=== PATIENT | female | born 1990 | race African-American/Black ===

== ENCOUNTER 2017-09-14 22:04 | Emergency (ER) | payer SELFPAY ==
[~2017-09-14] VITALS: Ht 162.6 cm; Wt 55.0 kg
[2017-09-14 22:13] VITALS: BP 122/55; PULSE 88; RESP 16; TEMP 99.6; O2SAT 100
== END 2017-09-14 23:33 | disposition left against medical advice (07) ==
LOC: NED 22:04
DX: Z53.21 Procedure and treatment not carried out due to patient leaving prior to being seen by health care provider (principal)
CPT/HCPCS: 99281

== ENCOUNTER 2017-09-23 22:44 | Emergency (ER) | payer SELFPAY ==
[~2017-09-23] VITALS: Ht 162.6 cm; Wt 50.4 kg
[2017-09-23 22:54] VITALS: BP 115/61; PULSE 94; RESP 16; TEMP 98.1; O2SAT 99
[2017-09-23] MEDS ORDERED: PREN1MIS10 (22:58)
--- NOTE | 2017-09-24 00:23 | PD ---
HPI Chief Complaint: Abdominal Pain Time Seen by Provider: 00:19 Travel History International Travel<30 days: No Contact w/Intl Traveler<30days: No Traveled to known affect area: No History of Present Illness HPI 27-year-old female presents to the emergency department complaining of intermittent right sided lower abdominal pain since last evening. Patient states she is approximately 6 weeks . Last menstrual period was . Patient is 3 para 0 AB 2. Patient does not have an CAR[employer]KER is scheduled for first appointment 10/02/17. Patient does not know her blood type. Patient denies any fever chills vomiting diarrhea dysuria frequency urgency hematuria vaginal discharge or vaginal bleeding. Patient rates discomfort at this time minor last night it was 7/10 intensity. Patient is taking no medications including no vitamins. PFSH Past Medical History Narrative Medical Ab2 LMP 08/19/17; no tobacco use no alcohol use no substance; nursing notes reviewed Medical History: Denies Significant Hx ?: LMP: 08/19/17 Past Surgical History Surgical History: No Previous Surgery Social History Alcohol Use: No Tobacco Use: No Substance Use: No Allergies-Medications (Allergen,Severity, Reaction): Coded Allergies: No Known Allergies (Unverified , 09/23/17) Reported Meds & Prescriptions Reported Meds & Active Scripts Active Reported One A Day Womens 28-0.8 & 223 mg ( Vit W/ Ferrous Fumara) 28- 800-223 Mis Review of Systems Except as stated in HPI: all other systems reviewed are Neg Physical Exam Narrative GENERAL: Well-developed well-nourished female no acute distress no respiratory distress SKIN: Warm and dry. HEAD: Normocephalic. EYES: No scleral icterus. No injection or drainage. NECK: Supple, trachea midline. No JVD or lymphadenopathy. CARDIOVASCULAR: Regular rate and rhythm without murmurs, gallops, or rubs. RESPIRATORY: Breath sounds equal bilaterally. No accessory muscle use. GASTROINTESTINAL: Abdomen soft, non-tender, nondistended. Pelvic exam: Normal external exam no redness induration or lesion; speculum exam scant white mucus no clots no blood no tissue cervical loss is closed; bimanual exam no adnexal mass or tenderness no cervical motion tenderness no uterine enlargement. MUSCULOSKELETAL: No cyanosis, or edema. BACK: Nontender without obvious deformity. No CVA tenderness. Data Data Last Documented VS Vital Signs Date Time Temp Pulse Resp B/P (MAP) Pulse Ox O2 Delivery O2 Flow Rate FiO2 09/23/17 22:54 98.1 94 16 115/61 (79) 99 Orders Orders Beta Hcg (Quant/Titer) (09/24/17 00:19) Complete Blood Count With Diff (09/24/17 00:19) Comprehensive Metabolic Panel (09/24/17 00:19) Complete Rh (09/24/17 00:19) Urinalysis - C+S If Indicated (09/24/17 00:19) Ed Urine Pregnancytest Poc (09/24/17 00:19) Us Pelvis (Ques Pr/Ect)W Trans (09/24/17 ) Rhogam Only (09/24/17 02:53) Labs Laboratory Tests Test 09/24/17 00:30 White Blood Count 9.9 TH/MM3 Red Blood Count 4.45 MIL/MM3 Hemoglobin 13.1 GM/DL Hematocrit 38.4 % Mean Corpuscular Volume 86.4 FL Mean Corpuscular Hemoglobin 29.5 PG Mean Corpuscular Hemoglobin Concent 34.2 % Red Cell Distribution Width 13.0 % Platelet Count 286 TH/MM3 Mean Platelet Volume 9.4 FL Neutrophils (%) (Auto) 52.4 % Lymphocytes (%) (Auto) 35.3 % Monocytes (%) (Auto) 11.0 % Eosinophils (%) (Auto) 0.9 % Basophils (%) (Auto) 0.4 % Neutrophils # (Auto) 5.2 TH/MM3 Lymphocytes # (Auto) 3.5 TH/MM3 Monocytes # (Auto) 1.1 TH/MM3 Eosinophils # (Auto) 0.1 TH/MM3 Basophils # (Auto) 0.0 TH/MM3 CBC Comment DIFF FINAL Differential Comment Urine Color YELLOW Urine Turbidity CLEAR Urine pH 7.0 Urine Specific [place] 1.011 Urine Protein NEG mg/dL Urine Glucose (UA) NEG mg/dL Urine Ketones NEG mg/dL Urine Occult Blood NEG Urine Nitrite NEG Urine Bilirubin NEG Urine Urobilinogen LESS THAN 2.0 MG/DL Urine Leukocyte Esterase SMALL Urine WBC 1 /hpf Urine Squamous Epithelial Cells 5 /hpf Urine Bacteria RARE /hpf Urine Mucus FEW /lpf Microscopic Urinalysis Comment CULT NOT INDICATED Blood Urea Nitrogen 10 MG/DL Creatinine 0.68 MG/DL Random Glucose 86 MG/DL Total Protein 7.9 GM/DL Albumin 3.9 GM/DL Calcium Level 9.5 MG/DL Alkaline Phosphatase 76 U/L Aspartate Amino Transf (AST/SGOT) 12 U/L Alanine Aminotransferase (ALT/SGPT) 23 U/L Total Bilirubin 0.2 MG/DL Sodium Level 139 MEQ/L Potassium Level 3.5 MEQ/L Chloride Level 104 MEQ/L Carbon Dioxide Level 25.8 MEQ/L Anion Gap 9 MEQ/L Estimat Glomerular Filtration Rate 128 ML/MIN Human Chorionic Gonadotropin, Quant [id number] MIU/ML MDM Medical Decision Making Medical Screen Exam Complete: Yes Emergency Medical Condition: Yes Medical Record Reviewed: Yes Interpretation(s) [id number] hCG: Positive CBC & BMP Diagram 09/24/17 00:30 Total Protein 7.9, Albumin 3.9, Calcium Level 9.5, Alkaline Phosphatase 76, Aspartate Amino Transf (AST/SGOT) 12 L, Alanine Aminotransferase (ALT/SGPT) 23, Total Bilirubin 0.2 Vital Signs Date Time Temp Pulse Resp B/P (MAP) Pulse Ox O2 Delivery O2 Flow Rate FiO2 09/23/17 22:54 98.1 94 16 115/61 (79) 99 hc ua: Few bacteria (O-) Last Impressions Pelvis Ultrasound 09/24/17 0000 Signed Impressions: Service Date/Time: Sunday, September 24, 2017 01:53 - CONCLUSION: Early intrauterine gestation as above Jamie Wise MD Differential Diagnosis , ectopic , UTI, appendicitis Narrative Course IV access obtained specimens collected and sent for resulting Patient's quantitative hC,658 Pelvic ultrasound pending Pelvic ultrasound shows intrauterine 6 week with small submembranous hemorrhage; patient is 3 para 2 AB 2 does not recall ever receiving RhoGam concern for bleeding associated with will give 1 dose of RhoGam. Patient is otherwise stable for outpatient management. 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 MD Sep 24, 2017 00:23
[2017-09-24 00:44] LABS: AUTOMATED NEUTROPHIL # 5.2 TH/MM3 (1.8-7.7); BACTERIA, URINE RARE /hpf; BASOPHIL % 0.4 % (0.0-2.0); BILIRUBIN, URINE NEG (NEG); BLOOD, URINE NEG (NEG); EOSINOPHIL # 0.1 TH/MM3 (0-0.4); EOSINOPHIL % 0.9 % (0.0-4.0); GLUCOSE,URINE NEG (NEG); HEMATOCRIT 38.4 % (35.0-46.0); HEMOGLOBIN 13.1 GM/DL (11.6-15.3); KETONE, URINE NEG (NEG); LYMPH % 35.3 % (9.0-44.0); LYMPHOCYTE # 3.5 TH/MM3 (1.0-4.8); MEAN CELL VOLUME 86.4 FL (80.0-100.0); MEAN CORPUSCULAR HEMOGLOBIN 29.5 PG (27.0-34.0); MEAN CORPUSCULAR HGB CONC 34.2 % (32.0-36.0); MEAN PLATELET VOLUME 9.4 FL (7.0-11.0); MONOCYTE # 1.1 TH/MM3 (0-0.9); MUCUS URINE FEW /lpf (OCC); NEUT % 52.4 % (16.0-70.0); NITRITE,URINE NEG (NEG); PLATELET COUNT 286 TH/MM3 (150-450); RED BLOOD COUNT 4.45 MIL/MM3 (4.00-5.30); SQUAMOUS EPITHELIAL CELL URINE 5 /hpf (0-5); URINE COLOR YELLOW (YELLW/STRAW); URINE LEUKOCYTE ESTERASE SMALL (NEG); WHITE BLOOD COUNT 9.9 TH/MM3 (4.0-11.0)
[2017-09-24 00:58] LABS: ALBUMIN 3.9 GM/DL (3.4-5.0); AST (GOT) 12 U/L (15-37); BICARBONATE 25.8 MEQ/L (21.0-32.0); BLOOD UREA NITROGEN 10 MG/DL (7-18); CALCIUM 9.5 MG/DL (8.5-10.1); CHLORIDE 104 MEQ/L (98-107); CREATININE 0.68 MG/DL (0.50-1.00); GLOMERULAR FILTRATION RATE 128 ML/MIN (>89); GLUCOSE,RANDOM 86 MG/DL (74-106); SODIUM (NA) 139 MEQ/L (136-145)
[2017-09-24 01:16] LABS: ALKALINE PHOSPHATASE 76 U/L (45-117); ALT (GPT) 23 U/L (10-53); TOTAL BILIRUBIN ADULT 0.2 MG/DL (0.2-1.0); TOTAL PROTEIN 7.9 GM/DL (6.4-8.2)
--- NOTE | 2017-09-24 02:47 | RADRPT ---
EXAM DATE/TIME: 09/24/2017 01:53 [facility] COMPARISON: No previous studies available for comparison. INDICATIONS : Pelvic pain. LAB(S): Beta-hC,658 MEDICAL HISTORY : Pelvic pain. Previous miscarriages. SURGICAL HISTORY : None. ENCOUNTER: Initial ACUITY: 1 day PAIN SCORE: 4/10 LOCATION: Bilateral pelvis MEASUREMENTS: UTERUS: 9.5 x 6.3 x 4.7 cm ENDOMETRIAL STRIPE: 9 mm RIGHT OVARY: 2.5 x 1.9 x 1.7 cm LEFT OVARY: 3.0 x 2.9 x 2.2 cm FREE FLUID: Yes cul de sac CROWN RUMP LENGTH: n/a = WKS DAYS FHR: n/a BPM FINDINGS: UTERUS: A gestational sac is identified in the uterine fundus with average diameter of 18.7 mm yielding estim ated gestational age of 6 weeks 2 days. Possible small yolk sac visualized. Crescentic hypodensity ad jacent to gestational sac may reflect some submembranous hemorrhage. RIGHT OVARY: Ovary contains no mass or significant cystic lesion. LEFT OVARY: Ovary contains no mass or significant cystic lesion. MISCELLANEOUS: Minimal cul-de-sac fluid CONCLUSION: Early intrauterine gestation as above Jamie Wise MD on September 24, 2017 at 2:37 Board Certified Radiologist. This report was verified electronically.
[2017-09-24 03:45] VITALS: BP 114/61; PULSE 90; RESP 15; TEMP 98.6
== END 2017-09-24 04:27 | disposition home or self-care (01) ==
LOC: NEPC 22:44
DX: O26.891 Other specified pregnancy related conditions, first trimester (principal); R10.31 Right lower quadrant pain; Z3A.01 Less than 8 weeks gestation of pregnancy
CPT/HCPCS: 76700; 76817; 80053; 81001; 84702; 84703; 85025; 86901; 90384; 96372; J2790

== ENCOUNTER 2017-09-26 18:38 | Emergency (ER) | payer SELFPAY ==
[~2017-09-26] VITALS: Ht 157.5 cm; Wt 68.0 kg
[~2017-09-26 18:38] MED LIST: PREN1MIS10
[2017-09-26 19:14] VITALS: BP 106/73; PULSE 77; RESP 16; TEMP 98.4; O2SAT 100
--- NOTE | 2017-09-26 20:23 | PD ---
HPI Chief Complaint: Related Problem Time Seen by Provider: 20:20 Travel History International Travel<30 days: No Contact w/Intl Traveler<30days: No Traveled to known affect area: No History of Present Illness HPI 27-year-old female who is approximately 6 weeks gestation with her third , presents emergency department for evaluation of vaginal bleeding. She states this is light spotting. She has had intercourse within the last 24 hours. Patient was seen and evaluated here 2 days ago for similar. Ultrasound confirmed early intrauterine . Patient was given RhoGam. Beta was drawn. Denies any fever chills. No urinary symptoms. No other symptoms to report. PFSH Past Medical History Medical History: Denies Significant Hx Immunizations Current: Yes Tetanus Vaccination: Unknown Influenza Vaccination: No ?: Social History Alcohol Use: No Tobacco Use: No Substance Use: No Allergies-Medications (Allergen,Severity, Reaction): Coded Allergies: No Known Allergies (Unverified , 09/26/17) Reported Meds & Prescriptions Reported Meds & Active Scripts Active Reported One A Day Womens 28-0.8 & 223 mg ( Vit W/ Ferrous Fumara) 28- 800-223 Mis Review of Systems Except as stated in HPI: all other systems reviewed are Neg Physical Exam Narrative GENERAL: Well-nourished, well-developed female patient in no acute distress. SKIN: Focused skin assessment warm/dry. HEAD: Normocephalic. EYES: No scleral icterus. No injection or drainage. NECK: Supple, trachea midline. No JVD or lymphadenopathy. CARDIOVASCULAR: Regular rate and rhythm without murmurs, gallops, or rubs. RESPIRATORY: Breath sounds equal bilaterally. No accessory muscle use. GASTROINTESTINAL: Abdomen soft, non-tender, nondistended. No guarding. No rebound tenderness. MUSCULOSKELETAL: No cyanosis, or edema. BACK: Nontender without obvious deformity. No CVA tenderness. Data Data Last Documented VS Vital Signs Date Time Temp Pulse Resp B/P (MAP) Pulse Ox O2 Delivery O2 Flow Rate FiO2 09/26/17 19:14 98.4 77 16 106/73 (84) 100 Orders Orders Iv Access Insert/Monitor (09/26/17 20:24) Beta Hcg (Quant/Titer) (09/26/17 20:24) Urinalysis - C+S If Indicated (09/26/17 20:24) Sodium Chlor 0.9% 1000 Ml Inj (Ns 1000 M (09/26/17 20:30) Ed Discharge Order (09/26/17 21:53) Labs Laboratory Tests Test 09/26/17 20:43 Urine Color LIGHT-YELLOW Urine Turbidity CLEAR Urine pH 7.0 Urine Specific [place] 1.013 Urine Protein NEG mg/dL Urine Glucose (UA) NEG mg/dL Urine Ketones NEG mg/dL Urine Occult Blood SMALL Urine Nitrite NEG Urine Bilirubin NEG Urine Urobilinogen LESS THAN 2.0 MG/DL Urine Leukocyte Esterase TRACE Urine RBC 1 /hpf Urine WBC 1 /hpf Urine Squamous Epithelial Cells 3 /hpf Urine Bacteria RARE /hpf Urine Mucus FEW /lpf Microscopic Urinalysis Comment CULT NOT INDICATED Human Chorionic Gonadotropin, Quant [id number] MIU/ML MDM Medical Decision Making Medical Screen Exam Complete: Yes Emergency Medical Condition: Yes Medical Record Reviewed: Yes Differential Diagnosis Postcoital bleeding versus threatened miscarriage versus STD versus UTI Narrative Course 27-year-old female presents emergency department for evaluation of vaginal s bleeding. Patient appears without distress. She was evaluated here 2 days ago for lower abdominal cramping. Complete workup was done at that time including pelvic. Ultrasound was done and confirmed intrauterine at that time. Beta was drawn. We will repeat the beta and do a urinalysis. Laboratory Tests Test 09/26/17 20:43 Urine Color LIGHT-YELLOW Urine Turbidity CLEAR Urine pH 7.0 Urine Specific [place] 1.013 Urine Protein NEG mg/dL Urine Glucose (UA) NEG mg/dL Urine Ketones NEG mg/dL Urine Occult Blood SMALL Urine Nitrite NEG Urine Bilirubin NEG Urine Urobilinogen LESS THAN 2.0 MG/DL Urine Leukocyte Esterase TRACE Urine RBC 1 /hpf Urine WBC 1 /hpf Urine Squamous Epithelial Cells 3 /hpf Urine Bacteria RARE /hpf Urine Mucus FEW /lpf Microscopic Urinalysis Comment CULT NOT INDICATED Human Chorionic Gonadotropin, Quant [id number] MIU/ML Findings are discussed with the patient. I have encouraged follow-up with her OB. She agrees to return immediately with any acute worsening symptoms. 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
[2017-09-26] MEDS ORDERED: SODIUM CHLOR 0.9% 1000 ML INJ 1,000 ML IV ONE (20:30)
[2017-09-26 21:20] LABS: BACTERIA, URINE RARE /hpf; BILIRUBIN, URINE NEG (NEG); BLOOD, URINE SMALL (NEG); GLUCOSE,URINE NEG (NEG); KETONE, URINE NEG (NEG); MUCUS URINE FEW /lpf (OCC); NITRITE,URINE NEG (NEG); SQUAMOUS EPITHELIAL CELL URINE 3 /hpf (0-5); URINE COLOR LIGHT-YELLOW (YELLW/STRAW); URINE LEUKOCYTE ESTERASE TRACE (NEG)
== END 2017-09-26 22:21 | disposition home or self-care (01) ==
LOC: NEPD 18:38
DX: O20.9 Hemorrhage in early pregnancy, unspecified (principal); Z3A.01 Less than 8 weeks gestation of pregnancy
CPT/HCPCS: 81001; 84702; 96360; 99284; J7030